=== PATIENT | female | born 1955 | race Two or more races ===

== ENCOUNTER 2016-08-19 12:50 | Emergency (ER) | payer OTHER ==
[~2016-08-19] VITALS: Ht 162.6 cm; Wt 69.9 kg
[2016-08-19 13:28] LABS: BASOPHILS # (AUTO) 0.1 /CMM (0.0-0.2); DIFF TOTAL % 100 %; EOSINOPHILS % (AUTO) 0.1 % (0.0-6.0); HEMATOCRIT 39 % (33-45); LYMPHOCYTES % (AUTO) 14.5 % (20.0-44.0); MEAN CORPUSCULAR HEMOGLOBIN 26 PG (26.0-33.0); MEAN CORPUSCULAR HGB CONC 33 g/dl (31.0-36.0); MEAN CORPUSCULAR VOLUME 78 fL (82-100); MONOCYTES # (AUTO) 0.4 /CMM (0.1-1.30); MONOCYTES % (AUTO) 5.5 % (2.0-12.0); NEUTROPHILS # (AUTO) 5.3 /CMM (1.8-8.9); NEUTROPHILS % (AUTO) 78.9 % (43.0-81.0); PLATELET COUNT (AUTO) 244 /CMM (150-450); RED BLOOD CELL COUNT(AUTO) 4.99 MIL/uL (4.0-5.2); WHITE BLOOD COUNT (AUTO) 6.8 K/uL (4.3-11.0)
[2016-08-19 13:40] LABS: ANION GAP 15 (5-14); CALCIUM, SERUM 9.4 mg/dL (8.5-10.1); CARBON DIOXIDE 23 mmol/L (21-32); CHLORIDE 102 mmol/L (98-107); CREATININE 0.5 mg/dL (0.6-1.3); GFR 126 mL/min (>60); GLUCOSE 99 mg/dL (74-106); POTASSIUM 3.4 mmol/L (3.5-5.1); SODIUM SERUM 137 mmol/L (136-145); UREA NITROGEN, BLOOD 9 mg/dL (7-18)
[2016-08-19 13:45] LABS: INR 0.98 (0.87-1.13); PROTHROMBIN TIME 10.3 SECS (9.5-12.7)
[2016-08-19 13:49] LABS: TROPONIN I < 0.017 ng/mL (0.00-0.056)
[2016-08-19] MEDS ORDERED: IV NS 0.9% 1,000 ML BAG IV ONE (15:00)
[2016-08-19] MEDS ORDERED: METOCLOPRAMIDE HCL 10 MG/2 ML VIAL IV ONE (15:00)
[2016-08-19] MEDS ORDERED: ACETAMINOPHEN ES 500 MG TABLET PO ONE (15:00)
[2016-08-19] MEDS ORDERED: METOCLOPRAMIDE HCL 10 MG/2 ML VIAL ONE (15:09)
[2016-08-19] MEDS ORDERED: ACETAMINOPHEN ES 500 MG TABLET ONE (15:10)
[2016-08-19] MEDS ORDERED: IV SET PRIMARY PUMP SET 1 EA INFUS.SET MC ONE (15:10)
[2016-08-19] MEDS ORDERED: IV NS 0.9% 1,000 ML ONE (15:10)
[2016-08-19 16:30] VITALS: BP 134/82
[2016-08-19 17:10] LABS: ADD UA MICROSCOPIC YES; LEUKOCYTE ESTERASE ,URINE TRACE (NEGATIVE)
[2016-08-19 17:11] LABS: KETONES,URINE 1+ (NEGATIVE)
[2016-08-19 18:01] LABS: ADD URINE CULTURE NO
== END 2016-08-19 16:31 | disposition home or self-care (01) ==
LOC: ER 12:53
DX: J18.9 Pneumonia, unspecified organism (principal); I10 Essential (primary) hypertension; E78.5 Hyperlipidemia, unspecified
CPT/HCPCS: 36415; 71010-TC; 80048-TC; 81000-TC; 84484-TC; 85025-TC; 85730-TC; 87400; A4606; J2765; J7030; Z7610

== ENCOUNTER 2017-11-26 14:49 | Inpatient (IN) | payer MEDICAID, OTHER ==
[~2017-11-26] VITALS: Ht 162.6 cm; Wt 68.9 kg
--- NOTE | 2017-11-26 15:10 | NUR ---
PRESENTS TO ER C/O CHEST PAIN X 2 DAYS, RADIATING TO BACK. A/OX 4, BREATHING EVEN AND UNLABORED AT THIS TIME. NO SOB, NAD, VITALS STABLE. SKIN WARM AND DRY. SAFETY AND COMFORT MEASURES IN PLACE. AWAITING MD ORDERS.
--- NOTE | 2017-11-26 15:20 | NUR ---
new iv started on lac, 20g. blood drawn and sent to lab.
[2017-11-26 15:23] LABS: BASOPHILS # (AUTO) 0.3 /CMM (0.0-0.2); BASOPHILS % (AUTO) 3.9 % (0.0-2.0); EOSINOPHILS % (AUTO) 1.6 % (0.0-6.0); HEMATOCRIT 36 % (33-45); HEMOGLOBIN 12.4 g/dL (11.5-14.8); LYMPHOCYTES # (AUTO) 2.4 /CMM (0.8-4.8); LYMPHOCYTES % (AUTO) 27.4 % (20.0-44.0); MEAN CORPUSCULAR HGB CONC 34 g/dl (31.0-36.0); MEAN CORPUSCULAR VOLUME 79 fL (82-100); MONOCYTES # (AUTO) 0.6 /CMM (0.1-1.30); MONOCYTES % (AUTO) 7.1 % (2.0-12.0); NEUTROPHILS # (AUTO) 5.4 /CMM (1.8-8.9); PLATELET COUNT (AUTO) 301 /CMM (150-450); RDW COEFFICIENT OF VARIATION 12.3 (11.5-15.0); RED BLOOD CELL COUNT(AUTO) 4.63 MIL/uL (4.0-5.2); WHITE BLOOD COUNT (AUTO) 8.8 K/uL (4.3-11.0)
--- NOTE | 2017-11-26 15:28 | NUR ---
OFFICE COORDINATOR AT BEDSIDE.
[2017-11-26] MEDS ORDERED: ASPIRIN 325 MG TABLET PO ONE (15:30)
[2017-11-26] MEDS ORDERED: NITROGLYCERIN 0.4 MG/TAB BOTTLE SL ONE (15:30)
[2017-11-26] MEDS ORDERED: IV NS 0.9% 500 ML BAG IV ONE (15:30)
[2017-11-26 15:33] LABS: CALCIUM, SERUM 9.1 mg/dL (8.5-10.1); CARBON DIOXIDE 27 mmol/L (21-32); CHLORIDE 104 mmol/L (98-107); CREATININE 0.5 mg/dL (0.6-1.3); GLUCOSE 109 mg/dL (74-106); POTASSIUM 3.6 mmol/L (3.5-5.1); SODIUM SERUM 140 mmol/L (136-145); UREA NITROGEN, BLOOD 17 mg/dL (7-18)
[2017-11-26 15:36] LABS: INR 0.92 (0.85-1.15)
[2017-11-26] MEDS ORDERED: NITROGLYCERIN 0.4 MG/TAB BOTTLE ONE (15:38)
[2017-11-26] MEDS ORDERED: ASPIRIN 325 MG TABLET ONE (15:39)
[2017-11-26 15:42] LABS: TROPONIN I < 0.017 ng/mL (0.00-0.056)
--- NOTE | 2017-11-26 15:54 | NUR ---
CALLED NURSING SUP AND REQUESTED A TELE BED.
--- NOTE | 2017-11-26 16:10 | NUR ---
PATIENT DENIES ANY CHEST PAIN AT THIS TIME. STATING RELIEVED BY NITRO. VITALS REMAIN STABLE, WILL CONTINUE TO MONITOR.
--- NOTE | 2017-11-26 16:17 | NUR ---
CALLED [facility] FOR PANEL CALL AND DR MCFADDEN WAS PAGED.
[2017-11-26 16:29] LABS: BILIRUBIN,DIRECT 0.1 mg/dL (0.0-0.2); BILIRUBIN,TOTAL 0.3 mg/dL (0.2-1.0); TOTAL PROTEIN, SERUM 7.8 g/dL (6.4-8.2)
--- NOTE | 2017-11-26 16:46 | NUR ---
PT IS ASSIGNED TO [facility]#: [id number], PT IS DIAGNOSED WITH CHEST PAIN, AND DR MCFADDEN IS THE ACCEPTING MD.
[2017-11-26] MEDS ORDERED: AMLO5TAB7 PO (16:47)
[2017-11-26] MEDS ORDERED: ATOR40TA PO (16:47)
--- NOTE | 2017-11-26 16:47 | NUR ---
315-2, TELE, DR. MCFADDEN
--- NOTE | 2017-11-26 16:51 | NUR ---
REPORT GIVEN TO CORNELL JOYCE MORRIS UPON ADMISSION.
[2017-11-26 17:00] VITALS: BP_SYST 138; BP_DIAS 78; BP_DIAS 80
[2017-11-26] MEDS ORDERED: HYDROCODONE/APAP 5/325MG 1 EACH TABLET PO PRN (17:00)
[2017-11-26] MEDS ORDERED: Z GUARD REMEDY 2 OZ OINT TP PRN (17:00)
[2017-11-26] MEDS ORDERED: ZOLPIDEM TARTRATE 5 MG TABLET PO PRN (17:00)
[2017-11-26] MEDS ORDERED: MAGNESIUM HYDROXIDE 30 ML UDC PO PRN (17:00)
[2017-11-26] MEDS ORDERED: MAG HYDROX/AL HYDROX/SIMETH 30 ML UDC PO PRN (17:00)
[2017-11-26] MEDS ORDERED: ACETAMINOPHEN 325 MG TABLET PO PRN (17:00)
[2017-11-26] MEDS ORDERED: ONDANSETRON HCL/PF 4 MG/2 ML VIAL IVP PRN (17:00)
--- NOTE | 2017-11-26 17:07 | NUR ---
PATIENT TRANSPORTED TO [facility] VIA ACLS PROTOCOL. CORNELL OVALLE TO PROVIDE MORRIS.
--- NOTE | 2017-11-26 17:10 | NUR ---
tele clinic physician director: admission admitted this 62 yr old female pt from [facility] with dx: chest pain, awake, a/ox4, ambulatory. greenlandic speaking only. sister at bedside to translate. denies chest pain, shortness of breath, nausea, or any discomfort. oriented to room and surroundings. dinner ordered. orders received from dr. agarwal. pt made aware. instructed to call for assistance. will continue to monitor.
[2017-11-26] MEDS ORDERED: ENOXAPARIN SODIUM 40 MG/0.4 ML DISP.SYRIN SQ SCH (18:00)
--- NOTE | 2017-11-26 18:10 | NUR ---
tele basketball commentator: notes 2d echo in progress. sister remains at bedside. will continue to monitor.
[2017-11-26] MEDS: IV NS 0.9% 1,000 ML IV PRN (18:21)
--- NOTE | 2017-11-26 19:30 | NUR ---
EARLY CHILDHOOD EDUCATION INSTRUCTOR OPENING NOTES RECEIVED PATIENT IN BED, AWAKE ALERT AND ORIENTED X4,RESPIRATIONS EVEN AND UNLABORED, PATIENT DENIES ANY CHEST PAIN OR DISCOMFORT AT THIS TIME, ON SUPERVISOR CIGAR PROCESSING SR96, NO DISTRESS PRESENT, LEFT AC IV SITE #20 GAUGE INTACT AND PATENT, NO REDNESS , NO INFILTRATION PRESENT, IVF FLUIDS RUNNING ORDERED. ORIENTED TO STAFF, AND CALL LIGHT AND KEPT WITHIN REACH, SAFETY MEASURES IN PLACE, WILL CONTINUE TO MONITOR . PATIENT NEEDS ATTENDED , FLUIDS OFFERED TOLERATED, REMAINS COMFORTABLE AT THIS TIME.
[2017-11-26 20:00] VITALS: BP 134/83
[2017-11-26 20:27] VITALS: BP 134/83
[2017-11-26] MEDS ORDERED: ATORVASTATIN 40 MG TABLET PO SCH (22:00)
[2017-11-27] VITALS: BP 133/78
[2017-11-27 04:18] VITALS: BP 128/73
[2017-11-27] MEDS: IV NS 0.9% 1,000 ML IV PRN (05:03)
--- NOTE | 2017-11-27 06:51 | NUR ---
COMPUTER SYSTEMS DESIGNER CLOSING NOTES PATIENT IN BED, AWAKE ALERT AND ORIENTED X4,RESPIRATIONS EVEN AND UNLABORED, PATIENT DENIES ANY CHEST PAIN OR DISCOMFORT AT THIS TIME, ON MORTGAGE SERVICING SPECIALIST SR 82, NO DISTRESS PRESENT, LEFT AC IV SITE #20 GAUGE INTACT AND PATENT, NO REDNESS , NO INFILTRATION PRESENT, IVF FLUIDS RUNNING ORDERED. PATIENT REMAINS NPO EXCEPT FOR MEDS ORDERED, BATHROOM OFFERED AND VOIDED X 3 ENTIRE SHIFT CALL LIGHT KEPT WITHIN REACH, SAFETY MEASURES IN PLACE, WILL CONTINUE TO MONITOR AND ENDORSE TO NEXT SHIFT PATIENT NEEDS ATTENDED,REMAINS COMFORTABLE AT THIS TIME.
[2017-11-27 07:21] LABS: CALCIUM, SERUM 8.7 mg/dL (8.5-10.1); CREATININE 0.6 mg/dL (0.6-1.3); MAGNESIUM 1.7 mg/dL (1.8-2.4); PHOSPHORUS 3.6 mg/dL (2.5-4.9); POTASSIUM 3.7 mmol/L (3.5-5.1)
[2017-11-27 07:30] LABS: THYROID STIMULATING HORMONE 1.546 uIU/mL (0.358-3.74)
--- NOTE | 2017-11-27 07:30 | NUR ---
CURTAIN SUPERVISOR/OPENING NOTES RECEIVED PT. IN BED A&OX4. ON TELE MONITOR READING SINUS RHYTHM 76 BPM. BREATHING UNLABORED, AND EVENLY ON ROOM AIR. NO SOB. NO S/S OF ACUTE DISTRESS. PT. C/O HEADACHE. IV FLUIDS RUNNING AT 75 ML/HR AT LEFT ANTECUBITAL SITE. BED IS IN LOWEST, AND LOCKED POSITION. PT. IS NPO EXCEPT MEDS AWAITING A ALLYN SCAN STRESS TEST. INSTRUCTED PT. TO USE CALL LIGHT FOR ASSISTANCE. ALL NEEDS MET . WILL CONTINUE TO ASSESS AND MONITOR.
[2017-11-27 07:34] LABS: BASOPHILS % (AUTO) 0.5 % (0.0-2.0); EOSINOPHILS % (AUTO) 2.7 % (0.0-6.0); HEMATOCRIT 34 % (33-45); HEMOGLOBIN 11.5 g/dL (11.5-14.8); LYMPHOCYTES # (AUTO) 2.1 /CMM (0.8-4.8); MEAN CORPUSCULAR HGB CONC 34 g/dl (31.0-36.0); MEAN CORPUSCULAR VOLUME 79 fL (82-100); MONOCYTES # (AUTO) 0.5 /CMM (0.1-1.30); MONOCYTES % (AUTO) 6.7 % (2.0-12.0); NEUTROPHILS # (AUTO) 4.7 /CMM (1.8-8.9); NEUTROPHILS % (AUTO) 62.1 % (43.0-81.0); PLATELET COUNT (AUTO) 256 /CMM (150-450); RDW COEFFICIENT OF VARIATION 13.3 (11.5-15.0); WHITE BLOOD COUNT (AUTO) 7.6 K/uL (4.3-11.0)
[2017-11-27 08:00] VITALS: BP 138/84
[2017-11-27 08:40] VITALS: BP 141/87
[2017-11-27] MEDS ORDERED: AMLODIPINE BESYLATE 5 MG TABLET PO SCH (09:00)
[2017-11-27] MEDS ORDERED: REGADENOSON 0.4 MG/5 ML DISP.SYRIN IVP ONE (09:30)
--- NOTE | 2017-11-27 10:08 | NUR ---
PT. LEFT ROOM 315 BED 2 FOR LEXISCAN STRESS TEST. PT. DAUGHTER WAS AT BEDSIDE BEFORE PT. LEFT ROOM.
[2017-11-27] MEDS: Magnesium 1GM/D5W 100ML PREMIX 100 ML IV SCH ×2 (12:45→14:03)
--- NOTE | 2017-11-27 17:05 | NUR ---
QUANTITATIVE CONSULTANT PT. WAS DISCHARGED IN MEDICALLY STABLE CONDITION. PT. LEFT BY PRIVATE CAR WITH SISTER. DISCHARGE INSTRUCTIONS WERE GIVEN WITH EDUCATION, AND PT. VERBALIZED UNDERSTANDING. BELONGINGS LIST WAS CHECKED, AND SIGNED. ID BAND, AND IV WAS REMOVED WITHOUT COMPLICATIONS. PT. LEFT WITH DISCHARGE PACKET, AND ALL QUESTIONS ANSWERED.
== END 2017-11-27 17:02 | disposition home or self-care (01) | DRG 203 ==
LOC: ER 14:54 → TELE 17:18 → MED 11-27 08:39
PROVIDERS: ADMIT Internal Medicine; ATTEND Internal Medicine
DX: M94.0 Chondrocostal junction syndrome [Tietze] (principal); I10 Essential (primary) hypertension; E78.5 Hyperlipidemia, unspecified; K21.9 Gastro-esophageal reflux disease without esophagitis; I70.0 Atherosclerosis of aorta; Z79.899 Other long term (current) drug therapy; Z90.710 Acquired absence of both cervix and uterus; Z82.49 Family history of ischemic heart disease and other diseases of the circulatory system
CPT/HCPCS: 36415; 70450-TC; 71045-TC; 80048-TC; 80061-TC; 80076-TC; 82746; 83540-TC; 83735-TC; 84100-TC; 84443-TC; 84484-TC; 85025-TC; 85378-TC; 85730-TC; 87081-TC; 93307-TC; A4606; A9502; J1650; J2785; J3475; J7030; J7040; Z7610